=== PATIENT | female | born 1930 | race Caucasian/White ===

== ENCOUNTER 2017-03-05 22:10 | Inpatient (IN) | payer MEDICARE, BC ==
[~2017-03-05] VITALS: Ht 160 cm; Wt 65.1 kg
--- NOTE | ~2017-03-05 | DS ---
Discharge Summary [place] [address] [facility] [place] [address] NAME: OBEY LOPEZ : [birth year] STATUS : DIS IN PAT#: [id number] AGE: 86 ADM/REG DATE : 03/05/17 MR#: [id number] REPORT SERV DATE: 03/09/17 DICTATED BY: DATE: REPORT STATUS : Draft TRANSCRIBED BY: MODL DATE: 03/08/17 ADMISSION DATE: 03/05/2017 DISCHARGE DATE: 03/08/2017 DISCHARGE DIAGNOSES: 1. Lower gastrointestinal bleed. 2. Acute blood loss anemia. 3. Coronary artery disease. 4. Peripheral arterial disease, status post carotid endarterectomy in January 2017. 5. Hypertension. CONSULTING PHYSICIANS: Include Dr. Juliana Ross with GI Medicine. DISCHARGE MEDICATIONS: Include Tylenol 100 mg p.o. b.i.d., Norvasc 10 mg p.o. daily, Lipitor 10 mg p.o. at bedtime, Ativan 0.5 mg p.o. at bedtime, Coreg 3.125 mg p.o. b.i.d., calcium carbonate 1000 mg p.o. at bedtime, Cozaar 25 mg p.o. at bedtime, multivitamin one tablet p.o. daily, Klor-Con 10 mEq p.o. daily, Symbicort two puffs inhalation b.i.d., aspirin 81 mg p.o. daily, ferrous sulfate 325 mg p.o. daily, vitamin C at 500 mg p.o. daily, and Synthroid 25 mcg p.o. daily. IMAGING: Includes nuclear red blood cell tagged which demonstrated no evidence of acute GI bleeding. For full H and P, please refer to Dr. Kumar Guzman's dictation on 03/05/2017. HOSPITAL COURSE/PROBLEM LIST: 1. Lower GI bleeding. The patient initially presented with hematochezia, which has resolved. Over the course of her hospital stay, she received three units of packed red blood cells. Her hemoglobin got down to 6.2 on 03/06/2017, today is 9.6, and again no active bleeding is present. This is the second recent admission for GI bleeding. She had colonoscopy several weeks ago with Dr. Ross that was negative. She reports that her bleeding started at this time after she was discharged from the hospital. When she resumed her Plavix after two days of taking Plavix, she started having hematochezia at home. Because of this, I contacted Ms. Madonna Joseph, nurse practitioner, for Dr. Burgos who performed a carotid endarterectomy and prescribed her Plavix. She instructed me to discontinue the Plavix and continue her on aspirin 81 mg p.o. daily. I explained to the patient if she develops any more bleeding to return to the ER immediately. 2. Acute blood loss anemia. This has resolved. 3. Coronary artery disease, status post CABG. She will follow up with Cardiology as needed. 4. Peripheral arterial disease, status post CEA. She will follow up with Dr. Burgos as needed. 5. Hypertension. This is controlled, systolic blood pressure ranging from 130s to 150s. Apparently, she did have some bradycardia during her hospital stay and her Coreg 6.25 mg p.o. b.i.d. was discontinued. I restarted this today; however, I decreased the dose Discharge Summary [address] [address] NAME: OBEY LOPEZ : [birth year] STATUS : DIS IN PAT#: [id number] AGE: 86 ADM/REG DATE : 03/05/17 MR#: [id number] REPORT SERV DATE: 03/09/17 DICTATED BY: DATE: REPORT STATUS : Draft TRANSCRIBED BY: AMAN DATE: 03/08/17 to 3.125 mg p.o. b.i.d., and she will follow up with her primary care doctor in one week, Dr. Dwaine Mcclellan, for further monitoring and management. 6. Hypothyroid. Her thyroid function was tested here. Her TSH was 10.2 and a free T4 of 1.02. I will start her on low-dose Synthroid of 25 mcg p.o. daily. She can follow up with her primary care doctor for further monitoring. She needs to have a recheck TSH and free T4 in six weeks from now for further medication adjustment. ADDENDUM [id number]: This discharge took greater than 30 minutes due to medication reconciliation, coordination with outside providers as well as prescription writing, and education of the patient. HUY/AMAN Raphael Cornell, TEST ANALYST Timothy Allen M.D. / [id number] CC: Jerman Stallworth M.D.
--- NOTE | ~2017-03-05 | HP ---
History And Physical [facility] [address] [facility] [place]. [address] NAME: OBEY LOPEZ : [birth year] STATUS : ADM IN [facility]#: [id number] AGE: 86 ADM/REG DATE : 03/05/17 MR#: [id number] REPORT SERV DATE: 03/06/17 DICTATED BY: Chato RODRIGUEZ DATE: 03/05/17 REPORT STATUS : Draft TRANSCRIBED BY: MODL DATE: 03/05/17 DATE OF ADMISSION: 03/05/2017 HISTORY OF PRESENT ILLNESS: An 86-year-old female who was at [facility] 02/24/2017 through 03/01/2017 with lower GI bleeding. She did require transfusion of 2 packed cells during that admission. Her colonoscopy revealed colonic AVMs and diverticulosis, and they also removed a small polyp which showed tubulovillous pathology. The patient had been off her aspirin and Plavix until today when she resumed both medicines. This evening, she had a large bloody bowel movement and was brought back to the emergency room. Here, her initial hemoglobin is 9.7, she was negative on her tilt test. She will now be admitted for further evaluation and likely followup colonoscopy. PAST MEDICAL HISTORY: Includes hypertension, coronary disease, right carotid endarterectomy, and recent acute kidney injury that has resolved. SOCIAL HISTORY: Good family support. No alcohol, tobacco, or drugs. REVIEW OF SYSTEMS: As per HPI. Specifically, negative for chest pain or shortness of breath. All other systems x10 reviewed and are negative. FAMILY HISTORY: Positive for cardiovascular disease. PHYSICAL EXAMINATION: VITAL SIGNS: Temp 98.8, heart rate 77, and blood pressure 157/71. GENERAL: A well-developed, conversant female patient, in no distress. HEENT: Pupils equal, round, and reactive to light. Extraocular muscles are intact. Oropharynx is clear. NECK: Without JVD, thyromegaly, or bruit. LUNGS: Clear. HEART: Regular without murmur or gallop. ABDOMEN: Soft. Positive bowel sounds. No organomegaly or mass. EXTREMITIES: No edema. Pulses are +2. SKIN: Without rash or ecchymotic area. MUSCULOSKELETAL: Joints with mild degenerative change diffusely without synovitis or effusion. NEURO: Cranial nerves grossly intact. Motor exam is nonfocal. Sensation unremarkable. Gait was not assessed. GENITOURINARY: Deferred. RECTAL: Exam shows heme-positive stool. AVAILABLE DATA: White count is 7.2, hemoglobin 9.7, hematocrit 30.7, and platelets 241. Sodium 142, potassium 3.7, chloride 106, bicarb 31, BUN 12, and creatinine 0.87. IMPRESSION: An 86-year-old female with recurrent lower GI bleeding. History And Physical [address] [address] NAME: OBEY LOPEZ : [birth year] STATUS : ADM IN [facility]#: [id number] AGE: 86 ADM/REG DATE : 03/05/17 MR#: [id number] REPORT SERV DATE: 03/06/17 DICTATED BY: Chato RODRIGUEZ DATE: 03/05/17 REPORT STATUS : Draft TRANSCRIBED BY: AMAN DATE: 03/05/17 PLAN: Admit to cardiac telemetry. Attending, Dr. Rodriguez. Consult Dr. Ross, her chick grader. Electrolyte replacement guidelines. Routine vitals. Clear liquids. N.p.o. after midnight. Hemoglobin and hematocrit q.6 hours. Follow up electrolytes. Hydrate with saline at 125 an hour x1 L, then decrease rate to 75 an hour. Reasonable pain and nausea control will be offered. Hold her current antiplatelet therapy. Parameters for transfusion. Further recommendations for treatment pending observation of her clinical course and review of followup data as well as input from Dr. Ross, her chick grader. [facility]/AMAN Chato Rodriguez M.D. / [id number] CC: Lucy SWANN
[~2017-03-05 22:10] MED LIST: *DENIES; ACET500CAP PO; ACETSUP650 PR; ASAB PO; ATEN50 PO; ATV.5 PO; BUM1 PO; BUM2 PO; COREG6 PO; COZ25 PO; DYAZIDE1 CAP PO; HALF81 PO; KLOR-CON 1010 MEQ PO; LIPITOR10 PO; MAX25 PO; MOTRIN IB200 MG PO; NORV10 PO; NORV25 PO; NORV5 PO; OCUVITE PO; PACERONE200 MG PO; PLAVIX PO; PRILO PO; PRILOSEC OTC20 MG PO; PT UNABLE TO RECALL; STOOL SOFTEN100 MG PO; SYMBICORT 160/41 INH INH; TEARS PURE OPH; TUMSROLL PO; VICODINTAB PO; [UNRECOGNIZED DRUG - OTHER]
[2017-03-05 22:57] LABS: BASOPHILS 0.1 %; BASOPHILS ABSOLUTE 0.01 10/3/uL (0.0-0.16); EOSINOPHILS 1.5 %; EOSINOPHILS ABSOLUTE 0.11 10/3/uL (0.0-0.53); HEMATOCRIT 30.7 % (36.0-48.0); HEMOGLOBIN 9.7 g/dL (12.0-16.0); IMMATURE GRANULOCYTES 0.1 %; IMMATURE GRANULOCYTES ABSOLUTE 0.01 10/3/uL (0.0-0.11); LYMPHOCYTES 21.8 %; LYMPHOCYTES ABSOLUTE 1.56 10/3/uL (0.67-4.30); MEAN CORPUS HGB CONC 31.6 g/dL (32.0-36.0); MEAN CORPUSCULAR HEMOGLOB 29.9 pg (26.0-34.0); MEAN CORPUSCULAR VOLUME 94.8 fL (80-100); MEAN PLATELET VOLUME 10.2 fL (9.2-13.0); MONOCYTES 10.3 %; MONOCYTES ABSOLUTE 0.74 10/3/uL (0.21-1.20); NEUTROPHILS 66.2 %; NEUTROPHILS ABSOLUTE 4.72 10/3/uL (2.02-8.40); PLATELET COUNT 241 10/3/uL (150-400); RBC DISTRIBUTION WIDTH 13.3 % (12.0-16.0); RED CELL COUNT 3.24 10/6/uL (4.0-5.6); WHITE BLOOD CELLS 7.2 10/3/uL (4.5-10.5)
[2017-03-05 22:58] LABS: MANUAL DIFF NO %
[2017-03-05 23:05] LABS: PROTIME (NOT ORD) 12.7 SEC (12.0-14.5)
[2017-03-05 23:06] LABS: PARTIAL THROMBO TIME 33.6 SEC (22.5-37.2)
[2017-03-05 23:11] LABS: A/G RATIO 0.9 (0.7-1.9); ALBUMIN 3.5 G/DL (3.5-5.0); ALKALINE PHOSPHATASE 68 U/L (45-117); CHLORIDE, SERUM 99 MMOL/L (96-112); CO2 (CARBON DIOXIDE) 33 MMOL/L (24-34); CREATININE 1.17 MG/DL (0.55-1.02); GFR AFRICAN AMERICAN 48 ML/MIN (>=60); GFR NON AFRICAN AMERICAN 42 ML/MIN (>=60); GLUCOSE, SERUM 108 MG/DL (60-99); POTASSIUM, SERUM 4.2 MMOL/L (3.5-5.3); SGOT(AST) 11 U/L (5-40); SGPT(ALT) 13 U/L (5-65); SODIUM, SERUM 140 MMOL/L (135-148); TOTAL BILIRUBIN 0.2 MG/DL (0-1.2); TOTAL PROTEIN 7.3 G/DL (6.0-8.5)
[2017-03-05 23:15] LABS: BUN (BLOOD UREA NITROGEN) 34 MG/DL (6-23); CALCIUM, SERUM 9.4 MG/DL (8.5-10.4); GLOBULIN 3.8 G/DL (2.5-4.1)
[2017-03-05 23:36] LABS: ASCORBIC ACID (UR NOT ORDER) 40 (NEG); BILIRUBIN, URINE NEGATIVE (NEG); ER URINALYSIS TAT 0 Hrs 00 Mins; KETONE, URINE NEGATIVE (NEG); LEUKOCYTE ESTERASE(NOT OR TRACE (NEG); NITRITE (URINE) NEG (NEG); WBC (NOT ORDERED) (RFLEX) 4 (0-5)
[2017-03-06 07:34] LABS: HEMATOCRIT 20.1 % (36.0-48.0); HEMOGLOBIN 6.5 g/dL (12.0-16.0)
[2017-03-06 07:37] LABS: BUN (BLOOD UREA NITROGEN) 33 MG/DL (6-23); CALCIUM, SERUM 8.7 MG/DL (8.5-10.4); CHLORIDE, SERUM 104 MMOL/L (96-112); CO2 (CARBON DIOXIDE) 32 MMOL/L (24-34); CREATININE 1.17 MG/DL (0.55-1.02); GFR AFRICAN AMERICAN 48 ML/MIN (>=60); GFR NON AFRICAN AMERICAN 42 ML/MIN (>=60); POTASSIUM, SERUM 4.6 MMOL/L (3.5-5.3); SODIUM, SERUM 141 MMOL/L (135-148)
[2017-03-06 07:40] LABS: GLUCOSE, SERUM 157 MG/DL (60-99)
[2017-03-06 08:14] LABS: HEMATOCRIT 19.5 % (36.0-48.0); HEMOGLOBIN 6.2 g/dL (12.0-16.0)
[2017-03-06 10:13] LABS: % IRON SAT 14 % (20-50); FERRITIN 23 NG/ML (8-252); IRON BINDING CAPACITY 331 MCG/DL (225-410); IRON, SERUM 45 MCG/DL (35-150)
[2017-03-06 10:23] LABS: RETICULOCYTE COUNT ABSOLUTE 40.6 10/3/uL (20.2-119.8)
[2017-03-06 15:39] LABS: HEMATOCRIT 27.4 % (36.0-48.0); HEMOGLOBIN 9.1 g/dL (12.0-16.0)
[2017-03-07 07:03] LABS: HEMOGLOBIN 7.3 g/dL (12.0-16.0)
[2017-03-07 07:07] LABS: HEMATOCRIT 22.2 % (36.0-48.0)
[2017-03-07 17:35] LABS: HEMATOCRIT 29.5 % (36.0-48.0)
[2017-03-08 05:34] LABS: BASOPHILS 0.2 %; BASOPHILS ABSOLUTE 0.02 10/3/uL (0.0-0.16); EOSINOPHILS 1.5 %; EOSINOPHILS ABSOLUTE 0.15 10/3/uL (0.0-0.53); HEMATOCRIT 28.6 % (36.0-48.0); HEMOGLOBIN 9.6 g/dL (12.0-16.0); IMMATURE GRANULOCYTES 1.1 %; IMMATURE GRANULOCYTES ABSOLUTE 0.11 10/3/uL (0.0-0.11); LYMPHOCYTES ABSOLUTE 2.42 10/3/uL (0.67-4.30); MEAN CORPUSCULAR HEMOGLOB 30.4 pg (26.0-34.0); MEAN PLATELET VOLUME 11.2 fL (9.2-13.0); MONOCYTES 12.1 %; MONOCYTES ABSOLUTE 1.22 10/3/uL (0.21-1.20); NEUTROPHILS 61.1 %; NEUTROPHILS ABSOLUTE 6.17 10/3/uL (2.02-8.40); RBC DISTRIBUTION WIDTH 15.4 % (12.0-16.0); RED CELL COUNT 3.16 10/6/uL (4.0-5.6)
[2017-03-08 05:35] LABS: MANUAL DIFF NO %; MEAN CORPUS HGB CONC 33.6 g/dL (32.0-36.0); MEAN CORPUSCULAR VOLUME 90.5 fL (80-100); PLATELET COUNT 119 10/3/uL (150-400); WHITE BLOOD CELLS 10.1 10/3/uL (4.5-10.5)
[2017-03-08 05:58] LABS: ALBUMIN 2.8 G/DL (3.5-5.0); CHLORIDE, SERUM 110 MMOL/L (96-112); CO2 (CARBON DIOXIDE) 28 MMOL/L (24-34); CREATININE 0.83 MG/DL (0.55-1.02); GFR AFRICAN AMERICAN 73 ML/MIN (>=60); GFR NON AFRICAN AMERICAN 63 ML/MIN (>=60); POTASSIUM, SERUM 4.5 MMOL/L (3.5-5.3); SGOT(AST) 15 U/L (5-40); SGPT(ALT) 8 U/L (5-65); SODIUM, SERUM 144 MMOL/L (135-148); TOTAL BILIRUBIN 0.4 MG/DL (0-1.2)
[2017-03-08 06:11] LABS: A/G RATIO 1.1 (0.7-1.9); ALKALINE PHOSPHATASE 37 U/L (45-117); BUN (BLOOD UREA NITROGEN) 17 MG/DL (6-23); CALCIUM, SERUM 7.7 MG/DL (8.5-10.4); GLOBULIN 2.6 G/DL (2.5-4.1); GLUCOSE, SERUM 87 MG/DL (60-99); TOTAL PROTEIN 5.4 G/DL (6.0-8.5)
[2017-03-08 11:49] LABS: FREE T4 1.02 NG/DL (0.76-1.46)
[2017-03-08] MEDS ORDERED: TUMSROLL PO (15:03)
[2017-03-08] MEDS ORDERED: COREG3 PO (15:06)
[2017-03-08] MEDS ORDERED: FERROUS SULF325 M1 PO (15:11)
[2017-03-08] MEDS ORDERED: VITC500 PO (15:12)
[2017-03-08] MEDS ORDERED: SYN.025B PO (15:13)
== END 2017-03-08 17:44 | disposition home or self-care (01) | DRG 378 ==
LOC: ER 22:10 → 7NO 23:57
PROVIDERS: Internal Medicine; Internal Medicine Gastroenterology; Physician Assistant
PROC: 30233N1 Transfusion of Nonautologous Red Blood Cells into Peripheral Vein, Percutaneous Approach (ICD-10-PCS; principal; 2017-03-05)
DX: K55.21 Angiodysplasia of colon with hemorrhage (principal); D62 Acute posthemorrhagic anemia; I73.9 Peripheral vascular disease, unspecified; R00.1 Bradycardia, unspecified; I10 Essential (primary) hypertension; I25.10 Atherosclerotic heart disease of native coronary artery without angina pectoris; K57.30 Diverticulosis of large intestine without perforation or abscess without bleeding; E03.9 Hypothyroidism, unspecified; T45.525A Adverse effect of antithrombotic drugs, initial encounter; Z79.82 Long term (current) use of aspirin; Z86.010 Personal history of colon polyps; Z95.1 Presence of aortocoronary bypass graft; Z79.02 Long term (current) use of antithrombotics/antiplatelets
CPT/HCPCS: 36415; 78278; 80048; 80053; 81001; 82728; 83540; 83550; 84439; 84443; 85014; 85018; 85025; 85045; 85610; 85730; 86850; 86900; 86901; 86920; 94640; 99284; A9270-GY; A9560; J2405; J2597; J2916; P9016